=== PATIENT | male | born 1965 | race Caucasian/White ===

== ENCOUNTER 2021-02-05 15:42 | Emergency (ER) | payer MEDICAID ==
[~2021-02-05] VITALS: Ht 185.4 cm; Wt 109.8 kg
[2021-02-07 11:57] VITALS: BP 114/67
== END 2021-02-07 11:54 | disposition home or self-care (01) ==
LOC: ED 16:00 → EDIP 21:52 → UNDOADMIN 21:52 → EDIP 02-06 17:11 → ED 02-07 11:54
DX: F15.10 Other stimulant abuse, uncomplicated (principal); G93.41 Metabolic encephalopathy; E87.5 Hyperkalemia; N17.9 Acute kidney failure, unspecified; R41.82 Altered mental status, unspecified
CPT/HCPCS: 36415; 70450; 71045; 76770; 80048; 80053; 80299; 80307; 80320; 80329; 81003; 82550; 84100; 85025; 87046; 87427; 89055; 93005; 96361; 96365; 96366; 96372; 96375; 99285; J1644; J1650; J7030; J7070